=== PATIENT | female | born 1970 | race Caucasian/White ===

== ENCOUNTER 2020-03-03 17:40 | Emergency (ER) | payer OTHER, SELFPAY ==
[2020-03-03 17:57] VITALS: BP 128/81; PULSE 98; RESP 20; TEMP 37.9; O2SAT 98
--- NOTE | 2020-03-03 18:08 | ED.GENADULT ---
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 No treatment. Intermittent dry coughing without chest congestion. Rhinorrhea and nasal congestion. No exacerbating factors. No nausea, vomiting, and abdominal pain. Tolerating po intake well. Denies chest pain, dyspnea, coughing up blood, difficulty swallowing, jaw pain, dental pain, facial pain, foreign body sensation, and rash. LMP menopausal. Remains active. The patient reports she have not been diagnosed with COVID-19. The patient reports she is not waiting for the results of a COVID-19 lab test. The patient reports she do not have fever, chills, or weakness. The patient reports she do not have a worsening cough or shortness of breath. The patient reports she do not have any loss of taste and diarrhea. Denies recent traveling. Christiana says she is concerned for COVID-19 and exposures due to several possible exposures in classroom. At this time, patient is suspected of having COVID-19. Some parts of this dictation were generated by voice recognition software and may contain typographical and/or grammatical inaccuracies. Related Data Home Medications Medication Instructions Recorded Confirmed soy isofla 56 mg-black cohosh 40 tablet PO 06/14/19 03/01/20 mg-green tea,yerba mate 130 mg tablet phentermine 37.5 mg tablet 37.5 mg PO DAILY 03/01/20 03/03/20 estradiol-norethindrone acet 1 tablet PO DAILY 03/03/20 03/03/20 Allergies Allergy/AdvReac Type Severity Reaction Status Date / Time No Known Allergies Allergy Verified 03/03/20 18:02 Review of Systems Review of Systems: Narrative: CONSTITUTIONAL: Denies fever, chills, sweats. Complains of fatigue. EYES: Denies visual changes, redness, discharge. ENT: Complains of rhinorrhea, congestion, sore throat. Denies otalgia. CARDIOVASCULAR: Denies chest pain, palpitations, edema. RESPIRATORY: Denies dyspnea, wheezing. Complains of intermittent dry cough. GASTROINTESTINAL: Denies abdominal pain, nausea, vomiting, diarrhea. Complains of decrease appetite. GENITOURINARY: Denies dysuria, hematuria, abnormal discharge SKIN: Denies rash or itching. MUSCULOSKELETAL: Denies acute back pain, joint pain, or myalgia. NEUROLOGIC: Denies numbness or focal weakness. PSYCHIATRIC: Denies anxiety or depression. All systems reviewed & are unremarkable except as noted in HPI and below. [facility] Past Medical History Medical History (Updated 03/04/20 @ 00:00 by Danielle Garcia) delivery delivered Condyloma Cyst Fatty (change of) liver, not elsewhere classified CHLOÉ (generalized anxiety disorder) Hypertension Menopause Mitral valve prolapse Multinodular goiter Phobia, unspecified Surgical History Surgical History (Updated 03/03/20 @ 18:13 by SHABBIR Meadows) H/O section X2 H/O LEEP 2000 and 2005 History of dilation and curettage History of removal of cyst from back Family History Family History Father Hypertension Mother Hypertension Other Asthma Family history of arthritis Family history of hearing loss Family history of obesity Family history of thyroid disease Social History Social History (Updated 03/03/20 @ 18:14 by SHABBIR Meadows) Smoking status: Former smoker Tobacco type: cigarettes Second hand tobacco smoke exposure: No Smoking end date: 04/28/12 Alcohol intake: current Substance use: never Gender identity (if verbalized by the patient): Female Comments At time of signature, belén
== END 2020-03-03 18:35 | disposition home or self-care (01) ==
PROVIDERS: Emergency Provider Nurse Practitioner Family; PCP Family Medicine
DX: J06.9 Acute upper respiratory infection, unspecified (principal); U07.1 COVID-19; Z87.891 Personal history of nicotine dependence; K76.0 Fatty (change of) liver, not elsewhere classified; I10 Essential (primary) hypertension; I34.1 Nonrheumatic mitral (valve) prolapse; E04.2 Nontoxic multinodular goiter
CPT/HCPCS: 87081; 87804; 87880; 99213; G0463

== ENCOUNTER 2020-03-04 08:09 | Outpatient (NON) | payer OTHER, SELFPAY ==
[2020-03-05 02:43] LABS: SARS-CoV-2 RNA PCR Positive
== END 2020-03-04 08:10 ==
PROVIDERS: PCP Family Medicine; Visit Provider Nurse Practitioner Family
DX: U07.1 COVID-19 (principal)
CPT/HCPCS: 87635; C9803; U0003

== ENCOUNTER 2020-05-16 17:12 | Outpatient (CLI) | payer OTHER, SELFPAY ==
--- NOTE | ~2020-05-16 | MM_ITS ---
EXAMINATION: MM screening jyoti BI w liv HISTORY: Screening mammogram TECHNIQUE: Craniocaudal and mediolateral oblique 3-D tomosynthesis images were obtained and synthetic 2-D images were generated. CAD analysis was submitted and interpreted. COMPARISON: 01/28/2019 bilateral digital screening mammogram 09/28/2015 right digital screening and left diagnostic mammogram. BREAST PARENCHYMAL COMPOSITION: FINDINGS: There is no evidence of suspicious mass, calcification, or architectural distortion to sugg est malignancy in either breast. There has been no suspicious interval change. IMPRESSION: 1. No mammographic evidence of malignancy. 2. Recommend routine screening mammography in one year. BI-RADS Category 1: Negative Reviewed, dictated and finalized at location A. SITE SOIL EVALUATOR
== END 2020-05-16 17:13 | disposition home or self-care (01) ==
PROVIDERS: PCP Family Medicine; Visit Provider Nurse Practitioner
DX: Z12.31 Encounter for screening mammogram for malignant neoplasm of breast (principal)
CPT/HCPCS: 77063; 77067

== ENCOUNTER → 2021-03-16 16:10 | Outpatient (CLI) | payer OTHER, SELFPAY ==
--- NOTE | ~2021-03-16 | US_ITS ---
EXAMINATION: US thyroid DATE: 03/16/2021 16:28 INDICATION: Nontoxic nodular goiter TECHNIQUE: Multiple ultrasound images of the thyroid were obtained. COMPARISON: None. FINDINGS: The right thyroid lobe measures 4.8 x 2.1 x 1.8 cm. The left thyroid lobe measures 4.2 x 1.3 x 1.3 c m. Isoechoic wider than tall solid left thyroid nodule with smooth margins and without echogenic foc i (TI-RADS 3, mildly suspicious , FNA if >=2.5 cm, annual followup is >=1.5 cm) in the right thyroid lobe the larger measuring 2.2 cm and a smaller measuring 9 mm. 4 mm wider than tall hypoechoic solid nodules in the left thyroid (TI-RADS 4, moderately suspicious , FNA if >=1.5 cm, annual followup is > =1 cm). There is normal echotexture, echogenicity and vascular flow throughout the remainder of the t hyroid gland. IMPRESSION: 1. Stable appearance of a multinodular goiter. The largest TI RADS 3 nodule in the right thyroid lobe remains slightly below size criteria for biopsy but meets criteria for continued annual follow-up. Reviewed, dictated and finalized at location A. LE NEEDLE OPERATOR IMPRESSION: 1. Stable appearance of a multinodular goiter. The largest TI RADS 3 nodule in the right thyroid lobe remains slightly below size criteria for biopsy but meet s criteria for continued annual follow-up.
== END ==
PROVIDERS: PCP Family Medicine; Visit Provider Internal Medicine Endocrinology, Diabetes & Metabolism
DX: E04.2 Nontoxic multinodular goiter (principal)
CPT/HCPCS: 76536

== ENCOUNTER 2021-11-19 09:30 | Outpatient (CLI) | payer OTHER, SELFPAY ==
--- NOTE | ~2021-11-19 | MM_ITS ---
EXAMINATION: MM screening jyoti BI w liv HISTORY: Screening mammogram TECHNIQUE: Craniocaudal and mediolateral oblique 3-D tomosynthesis images were obtained and synthetic 2-D images were generated. CAD analysis was submitted and interpreted. COMPARISON: 05/16/2020, 01/28/2019 bilateral screening mammogram examinations of BREAST PARENCHYMAL COMPOSITION: There are scattered areas of fibroglandular density. FINDINGS: There is no evidence of suspicious mass, calcification, or architectural distortion to sugg est malignancy in either breast. There has been no suspicious interval change. IMPRESSION: 1. No mammographic evidence of malignancy. 2. Recommend routine screening mammography in one year. BI-RADS Category 1: Negative Reviewed, dictated and finalized at location A.
== END 2021-11-19 09:31 | disposition home or self-care (01) ==
LOC: ANHIMG 09:32
PROVIDERS: PCP Family Medicine; Visit Provider Nurse Practitioner
DX: Z12.31 Encounter for screening mammogram for malignant neoplasm of breast (principal)
CPT/HCPCS: 77063; 77067

== ENCOUNTER 2023-01-06 14:49 | Outpatient (CLI) | payer OTHER, SELFPAY ==
--- NOTE | ~2023-01-06 | MM_ITS ---
EXAMINATION: MM screening jyoti BI w liv HISTORY: Screening mammogram TECHNIQUE: Craniocaudal and mediolateral oblique 3-D tomosynthesis images were obtained and synthetic 2-D images were generated. CAD analysis was submitted and interpreted. COMPARISON: 11/19/2021, 05/16/2020, 01/28/2019 bilateral screening mammogram examinations BREAST PARENCHYMAL COMPOSITION: There are scattered areas of fibroglandular density. FINDINGS: There is no evidence of suspicious mass, calcification, or architectural distortion to sugg est malignancy in either breast. There has been no suspicious interval change. IMPRESSION: 1. No mammographic evidence of malignancy. 2. Recommend routine screening mammography in one year. BI-RADS Category 1: Negative Reviewed, dictated and finalized at location A.
--- NOTE | ~2023-01-06 | DEXA_ITS ---
Bone Density Report Name: GABRIELA PANG Age: 52 Sex: Female Ethnicity: White Date of : 1970 Indication: postmenopausal; screening for osteoporosis; parental hip fracture; hysterectomy; Referring Provider: CHAYITO, MARIA DE JESUS Study: Bone densitometry was performed. Exam Date: January 06, 2023 Accession number: [id number] Bone Density: Region BMD T-score Z-score Classification AP Spine(L1-L4) 1.099 0.5 1.2 Normal Femoral Neck (Left) 0.897 0.4 1.2 Normal Total Hip (Left) 1.089 1.2 1.7 Normal Femoral Neck (Right) 0.865 0.1 0.9 Normal Total Hip (Right) 1.116 1.4 1.9 Normal Total Hip Mean 1.103 1.3 1.8 Normal World Health Organization criteria for BMD impression classify patients as: Normal (T-score at or above -1.0), Osteopenia (T-score between -1.0 and -2.5), or Osteoporosis (T-score at or below -2.5). 10-year Fracture Risk: FRAX not reported because: All T-scores for Spine Total, Hip Total, Femoral Neck at or above -1.0 Clinical Information Provided by Patient: Parent has had a hip fracture Has the following medical conditions: Hysterectomy Patient maximum height was 64 Menopause Age: 47 Drinks caffeinated beverages Onset of menses at age 13 Number of children 2 Impression: The patient has normal bone mass. The patient has risk factors, including: parental hip fracture. Discussion: BONE DENSITY IS ABOVE THE MINIMUM DESIRABLE LEVEL AT ALL SKELETAL SITES TESTED. This patient?s bone mineral density is above the minimum desirable level (T-score -1.0 or better) at all sites measured. The patient should follow a healthful lifestyle (good nutrition with adequate calcium and vitamin D, and appropriate weight-bearing exercise). Follow-Up: Consider repeating this study in 5 years or sooner if there is some new clinical indication. Reported by: MANOLO on 01/06/2023 3:22:00 PM. Reviewed, dictated and finalized at location AJose R WAN
== END 2023-01-06 14:50 | disposition home or self-care (01) ==
PROVIDERS: PCP Nurse Practitioner; Visit Provider Nurse Practitioner
DX: Z12.31 Encounter for screening mammogram for malignant neoplasm of breast (principal); Z78.0 Asymptomatic menopausal state
CPT/HCPCS: 77063; 77067; 77080

== ENCOUNTER 2023-01-07 01:42 | Observation (INO) | payer OTHER, SELFPAY ==
[2023-01-07] VITALS (26 sets, daily range): BP systolic 88–124; BP diastolic 40–81; PULSE 68–164; RESP 13–20; TEMP 35.6–36.7; O2SAT 97–100; BMI 33.1
--- NOTE | 2023-01-07 | ECHO_ITS ---
Patient Info Name: Christiana Cheema Age: 52 years : 1970 Gender: Female Ht: 65 in Wt: 194 lbs BSA: 2.04 m2 HR: 80 bpm BP: 110 / 89 mmHg Heart Rhythm: Sinus Rhythm Technical Quality: Good Exam Date: 01/07/2023 10:40 AM Exam Location: [facility] Pulmonary Patient Status: Outpatient Admit Date: 01/07/2023 Staff Ordering Physician: Sampson Lua DO Special Education Para Professional: Alexa Jimenez RDCS Attending Provider: Armani Martinez MD Referring Physician: Stoney MONTE; Exam Type: CA echo doppler color flow Study Info Indications - svt, elevated troponin Complete two-dimensional, color flow and Doppler transthoracic echocardiogram is performed. Summary 1. Complete two-dimensional, color flow and Doppler transthoracic echocardiogram is performed. 2. Left ventricular chamber dimension is normal. 3. Left ventricular systolic function is normal, estimated at 60-65%. 4. There is mild asymmetric septal increased left ventricular wall thickness. 5. The left ventricular diastolic function is grade I diastolic dysfunction. 6. There is trace mitral valve regurgitation. 7. There is trace tricuspid valve regurgitation. 8. No pulmonary hypertension, estimated pulmonary arterial systolic pressure is 10 mmHg. Left Ventricle Tissue doppler E/e' is not performed. Left ventricular chamber dimension is normal. Left ventricular systolic function is normal, estimated at 60-65%. There is mild asymmetric septal increased left ventricular wall thickness. The left ventricular diastolic function is grade I diastolic dysfunction. Right Ventricle Right ventricular systolic function is normal and with normal TAPSE 2.4 cm. Right ventricular chamber dimension is normal. Left Atria Left atrial chamber dimension is normal. Right Atria Right atrial chamber dimension is normal. Aortic Valve The aortic valve is trileaflet. There is no aortic valve stenosis. There is no aortic valve regurgitation. Pulmonic Valve There is no pulmonic regurgitation. Mitral Valve There is no mitral valve stenosis. There is trace mitral valve regurgitation. Tricuspid Valve There is trace tricuspid valve regurgitation. No pulmonary hypertension, estimated pulmonary arterial systolic pressure is 10 mmHg. Pericardium/Pleural There is no pericardial effusion. Inferior Vena Cava Normal inferior vena cava with >50% collapse upon inspiration consistent with normal right atrial pressure, 5 mmHg. Aorta The aortic root size at the sinus of Valsalva is normal. Left Ventricular Outflow Tract Name Value Normal LVOT 2D LVOT Diameter 1.7 cm LVOT Doppler LVOT Peak Gradient 10 mmHg LVOT Mean Gradient 6 mmHg LVOT VTI 32 cm LVOT VTI/AV VTI Ratio 1.2 LVOT Stroke Volume 72 ml LVOT CO 4.9 l/min LVOT CI 2.4 l/min/m2 Pulmonic Valve Name Value Normal RVOT Doppler ------
--- NOTE | ~2023-01-07 | XR_ITS ---
Clinical Indication: Chest pain PA and lateral views of the chest: Comparison: None Findings: The lungs are clear, without evidence of focal consolidation or pleural effusion. Cardiome diastinal silhouette is within normal limits. Bones and soft tissues are unremarkable. Impression: Normal chest. Reviewed, dictated and finalized at location . Impression: Normal chest.
--- NOTE | 2023-01-07 01:44 | ECG_ITS ---
Measurements Intervals [place] Rate: 184 P: [place]: 0 QRS: -5 QRSD: 95 T: 33 QT: 248 QTc: 434 Interpretive Statements SUPRAVENTRICULAR TACHYCARDIA ST ABNORMALITY IN HIGH LATERAL LEADS- CONSIDER ISCHEMIA OR RATE RELATED BASELINE WANDER- AVR, AVF, V1 ABNORMAL ECG NO PREVIOUS ECG AVAILABLE FOR COMPARISON Electronically Signed On 01-07-2023 6:48:00 CDT by Sampson Lua D.O.
--- NOTE | 2023-01-07 02:04 | ECG_ITS ---
Measurements Intervals [place] Rate: 90 P: 30 OH: 176 QRS: 8 QRSD: 93 T: 28 QT: 346 QTc: 425 Interpretive Statements SINUS RHYTHM BORDERLINE ST ABNORMALITY- ANTEROLATERAL LEADS BASELINE ARTIFACT- III, V1 BORDERLINE ECG COMPARED TO ECG 01/07/2023 01:52:03 SINUS RHYTHM NOW PRESENT Electronically Signed On 01-07-2023 12:01:49 CDT by Sampson Lua D.O.
[2023-01-07] MEDS: ASPIRIN 81 MG CHEWABLE TABLET 324 MG PO (02:41)
--- NOTE | 2023-01-07 02:54 | ED.CHESTPAIN ---
HPI - Chest Pain General Chief Complaint: Chest Pain Stated Complaint: chest pain Time Seen by Provider: 01/07/23 02:14 History of Present Illness HPI narrative: Patient presents the emergency department with her from home. States she woke up feeling very anxious with palpitations and chest discomfort. [place] lightheaded. He brought her to the emergency department she was noted to be in SVT with a rate of 184. When nurse laid her back she cardioverted and became hypotensive. With time her blood pressure resolved on its own. She is feeling much better. Denies having similar episodes of this in the past. States she has been under in a lot of stress lately, she is concerned about her parents. She is accompanied by her but he does not contribute to the history. Related Data Home Medications Medication Instructions Recorded Confirmed soy isofla 56 mg-black cohosh 40 tablet PO 06/14/19 10/03/22 mg-green tea,yerba mate 130 mg tablet ([employer]) estradiol-norethindrone acet 0.5 1 tablet PO DAILY 03/03/20 10/03/22 mg-0.1 mg tablet Allergies Allergy/AdvReac Type Severity Reaction Status Date / Time No Known Allergies Allergy Verified 10/03/22 09:02 Review of Systems Review of Systems: CONSTITUTIONAL: Denies fever, chills, or sweats. EYES: Denies visual changes, redness, or discharge. ENT: Denies rhinorrhea, congestion, sore throat, or otalgia. CARDIOVASCULAR: Denies edema. Positive for chest discomfort and palpitations RESPIRATORY: Denies cough or dyspnea. GASTROINTESTINAL: Denies abdominal pain, nausea, vomiting, or diarrhea. GENITOURINARY: Denies dysuria or hematuria. SKIN: Denies rash or itching. MUSCULOSKELETAL: Denies back pain, joint pain, or myalgia. NEUROLOGIC: Denies headache, numbness, or weakness. PSYCHIATRIC: Denies anxiety or depression. [facility] Past Medical History Medical History delivery delivered Condyloma Cyst Fatty (change of) liver, not elsewhere classified CHLOÉ (generalized anxiety disorder) Hypertension Menopause Mitral valve prolapse Multinodular goiter Phobia, unspecified Surgical History Surgical History H/O section X2 H/O LEEP 2000 and 2005 History of dilation and curettage History of removal of cyst from back Family History Family History (Updated 10/03/22 @ 09:15 by Lorene Brito PA-C) Father Hypertension CHF (congestive heart failure) Mother Hypertension Other Asthma Cerebrovascular accident Diabetes mellitus Family history of arthritis Family history of hearing loss Family history of obesity Family history of thyroid disease Thyroid disease Social History Social History Smoking status: Former smoker Tobacco type: cigarettes Second hand tobacco smoke exposure: No Smoking end date: 04/28/12 Alcohol intake: current Substance use: never Living arrangements: with family Occupation/Education: occupation Gender identity (if verbalized by the patient): Female Sexual Orientation (if Verbalized by the Patient): Straight or Heterosexual Exam Narrative: GENERAL: Well-appearing, well-nourished, and in no acute distress. HEAD: Normocephalic, atraumatic. EYES: PERRLA and EOMI. ENT: Nares clear, no rhinorrhea or epistaxis. Mucous membranes moist. NECK: Supple. CHEST: Clear to auscultation. No respiratory distress. HEART: Regular rate and rhythm. ABDOMEN: Soft, nontender, nondistended. EXTREMITIES: Normal range of motion. No edema. SKIN: Warm, dry, no rash. NEURO: No focal deficits. Alert and oriented x3. PSYCH: Normal mood and affect. Course Course Emergency Course: Upon my exam the patient was no longer in SVT. Although initially hypotensive. Differential diagnosis includes but not limited to electroly
[2023-01-07 03:02] LABS: Basophils Absolute Auto 0.1 K/mm3 (0.0-0.1); Eosinophils Absolute Auto 0.2 K/mm3 (0-0.3); Eosinophils Percent Auto 3.2 % (0-4.4); Hematocrit 43.6 % (37.0-47.0); Hemoglobin 14.6 g/dL (12.0-15.0); Immature Granulocyte Absolute 0.01 K/mm3 (0.00-0.031); Immature Granulocyte Percent A 0.2 % (0-0.5); Lymphocytes Absolute Auto 1.63 K/mm3 (0.9-3.2); Lymphocytes Percent Auto 27.3 % (18.3-44.2); Mean Corpuscular HGB Conc 33.5 g/dl (32-36); Mean Corpuscular Hemoglobin 32.9 pg (26-34); Mean Corpuscular Volume 98.2 fl (80-100); Mean Platelet Volume 8.9 fl (7.4-10.4); Monocytes Absolute Auto 0.6 K/mm3 (0.1-0.6); Neutrophils Absolute Auto 3.5 K/mm3 (1.3-6.7); Neutrophils Percent Auto 58.3 % (45.5-73.1); Platelet Count Result 263 k/mm3 (150-375); Red Blood Count 4.44 M/mm3 (4.2-5.4); Red Cell Distribution Width 12.1 % (11.5-14.5)
[2023-01-07 03:12] LABS: Prothrombin Time 13.7 Seconds (11.1-14.7)
[2023-01-07 03:13] LABS: Partial Thromboplastin Time 29.7 SECONDS (22.3-36.8)
[2023-01-07 03:16] LABS: Alanine Aminotransferase 41 U/L (6-35); Albumin Level 3.7 g/dL (3.5-5.1); Alkaline Phosphatase 64 U/L (38-126); Anion Gap 10 mmol/L (8-16); Aspartate Amino Transferase 37 U/L (14-36); Bilirubin,Total 0.3 mg/dL (0.2-1.3); Blood Urea Nitrogen 18 mg/dL (7-17); Calcium 8.5 mg/dL (8.4-10.2); Carbon Dioxide 23 mmol/L (22-30); Chloride 106 mmol/L (98-107); Estimated CRCL calculation 70 ml/min; Estimated Glomerular Filt Rate > 60; Glucose 97 mg/dL (65-110); Lipase 109 U/L (23-300); Potassium 3.7 mmol/L (3.4-5.0); Sodium 139 mmol/L (137-145)
[2023-01-07 03:23] LABS: Magnesium 2.2 mg/dL (1.6-2.3); Phosphorus 3.6 mg/dL (2.5-4.5)
[2023-01-07 03:27] LABS: Troponin I < 0.012 ng/mL (0.000-0.034)
[2023-01-07 05:35] LABS: Troponin I 0.173 ng/mL (0.000-0.034)
--- NOTE | 2023-01-07 07:53 | PM.CNCAR ---
Assessment and Plan Assessment and plan (1) Nonsustained supraventricular tachycardia: Code(s): I47.1 - Supraventricular tachycardia Status: Acute Assessment and Plan: Spontaneously cardioverted to sinus rhythm. Start Metoprolol Succinate 25 mg daily. If BP is low, then would stop Lisinopril. (2) Elevated troponin: Code(s): R77.8 - Other specified abnormalities of plasma proteins Status: Acute Assessment and Plan: Troponin elevated at .173. Could be demand ischemia from rapid HR. Trend troponin to peak. Obtain echo. (3) Hypertension: Code(s): I10 - Essential (primary) hypertension Status: Acute Assessment and Plan: Monitor. History of Present Illness History of Present Illness Consult date/time: 01/07/23 07:53 Reason For Visit: chest pain Narrative: 52 yr old woman presented to ER with chest pain and palpitations. She has a history of brief palpitations in the past, hypertension, MVP, goiter. Reports she got up last night at 1 am to use restroom then noticed fast pounding heart rate and chest pain and sob with it. She informed her who drove her in to ER. When nurse laid her back in bed she converted back to sinus rhythm, and felt better. Admits to a lot of stress from her parent's illness. She normally can walk miles without any problems. Denies orthopnea, PND, edema, dizziness. Review of Systems Review of Systems: All systems reviewed & are unremarkable except as noted in HPI and below Constitutional: Constitutional: Reports as per HPI, Denies chills and Denies fever(s) Cardiovascular: Cardiovascular: Reports as per HPI, Reports chest pain and Reports palpitations Respiratory: Respiratory: Reports as per HPI and Reports dyspnea Gastrointestinal: Gastrointestinal: Reports as per HPI and Denies abdominal pain Genitourinary: Genitourinary: Reports as per HPI and Denies dysuria Musculoskeletal: Musculoskeletal: Reports as per HPI Neurologic: Reports as per HPI, Denies dizziness and Denies syncope [facility] Past Medical History Medical History delivery delivered Condyloma Cyst Fatty (change of) liver, not elsewhere classified CHLOÉ (generalized anxiety disorder) Hypertension Menopause Mitral valve prolapse Multinodular goiter Phobia, unspecified Surgical History Surgical History H/O section X2 H/O LEEP 2000 and 2005 History of dilation and curettage History of removal of cyst from back Family History Family History (Updated 10/03/22 @ 09:15 by Lorene Brito PA-C) Father Hypertension CHF (congestive heart failure) Mother Hypertension Other Asthma Cerebrovascular accident Diabetes mellitus Family history of arthritis Family history of hearing loss Family history of obesity Family history of thyroid disease Thyroid disease Social History Social History Smoking status: Former smoker Tobacco type: cigarettes Second hand tobacco smoke exposure: No Smoking end date: 04/28/12 Alcohol intake: current Substance use: never Living arrangements: with family Occupation/Education: occupation Gender identity (if verbalized by the patient): Female Sexual Orientation (if Verbalized by the Patient): Straight or Heterosexual Meds Home Medications and Allergies Home Medications Medication Instructions Recorded Confirmed Type soy isofla 56 mg-black cohosh 40 tablet PO 06/14/19 10/03/22 History mg-green tea,yerba mate 130 mg tablet ([employer]) estradiol-norethindrone acet 0.5 1 tablet PO DAILY 03/03/20 10/03/22 History mg-0.1 mg tablet fluticasone propionate 50 1 spray intranasal BID #16 mL 03/03/20 10/03/22 Rx mcg/actuation nasal spray,suspension (Allergy Relief (fluticasone)) betamet
[2023-01-07] MEDS: METOPROLOL SUCCINATE EXT REL 25 MG TABCR PO (08:23)
--- NOTE | 2023-01-07 08:27 | ADMGEN ---
This patient, Christiana Cheema, was admitted to IMU Room 210-01. Patient/family oriented to hospital policies and general routines including ID bracelet, bed and alarms, visiting hours, pain management, procedures, bathroom and other care routines, personal items, smoking policy, room service/diet, and visiting hours. Information on how to activate the Rapid Response Team has been discussed. Patient/Family are encouraged to report perceived risks to care and to ask questions if they do not understand what they are told or what they should do.
[2023-01-07 09:21] LABS: Troponin I 0.303 ng/mL (0.000-0.034)
[2023-01-07 13:12] LABS: Troponin I 0.229 ng/mL (0.000-0.034)
--- NOTE | 2023-01-07 18:36 | PM.IMHP ---
H&P: HPI History of Present Illness Date/Time: 01/07/23 18:36 Chief Complaint: Palpitations Narrative: 52 y/o F presents here with palpitations and chest tightness with PMH of HTN, mitral valve prolapse, and multi-nodular goiter. patient presented to the ED late last night around 0130 with palpitations and chest discomfort that started 30 minutes prior to arrival and awoke patient from her sleep. She endorsed mild shortness breath, chest tightness, and clammy sensation during event. No interventions at home attempted. At arrival to ED patient was laid back and spontaneous resolution of SVT occurred. No current complaints of palpitations, no previous episodes similar to last night, and no recent illnesses. Review of Systems Review of Systems: All systems reviewed & are unremarkable except as noted in HPI and below PMFSH Past Medical History Medical History delivery delivered Condyloma Cyst Fatty (change of) liver, not elsewhere classified CHLOÉ (generalized anxiety disorder) Hypertension Menopause Mitral valve prolapse Multinodular goiter Phobia, unspecified Surgical History Surgical History H/O section X2 H/O LEEP 2000 and 2005 History of dilation and curettage History of removal of cyst from back Family History Family History (Updated 10/03/22 @ 09:15 by Lorene Brito PA-C) Father Hypertension CHF (congestive heart failure) Mother Hypertension Other Asthma Cerebrovascular accident Diabetes mellitus Family history of arthritis Family history of hearing loss Family history of obesity Family history of thyroid disease Thyroid disease Social History Social History Smoking status: Former smoker Second hand tobacco smoke exposure: No Alcohol intake: current Drinks per week: 10 Substance use: never Lack of Transportation: No Lack of Food: Never True Current Housing: I Have Housing Concerned About Future Housing: No Difficulty Paying Gas/Electric Bills: No Difficulty Paying for Meds: No Currently Unemployed: No Education: Master's Degree or Higher Difficulty w/ Childcare or Family Care: YES Living arrangements: with family Occupation/Education: occupation Gender identity (if verbalized by the patient): Female Sexual Orientation (if Verbalized by the Patient): Straight or Heterosexual Spiritual care concerns: No Meds Home Medications and Allergies Home Medications Medication Instructions Recorded Confirmed Type estradiol-norethindrone acet 0.5 1 tablet PO DAILY 03/03/20 01/07/23 History mg-0.1 mg tablet lisinopril 30 mg tablet See Rx Instructions .Route 10/17/22 01/07/23 Rx .COMPLEX #30 tabs liraglutide (weight loss) 3 mg/0.5 3 mg subcut DAILY 01/07/23 01/07/23 History mL (18 mg/3 mL) subcut pen injector (Saxenda) vxmcryvh-vsr-teecp ac 400 1 tablet PO DAILY 01/07/23 01/07/23 History mcg-calcium carb 500 mg-vit K1 20 mcg tablet (Women's 50 Plus Multivitamin) phentermine 37.5 mg tablet 37.5 mg PO DAILY 01/07/23 01/07/23 History Allergies Allergy/AdvReac Type Severity Reaction Status Date / Time No Known Allergies Allergy Verified 10/03/22 09:02 Vital Signs Vital Signs - 24 hr 01/07/23 01:53 01/07/23 02:03 01/07/23 02:03 Temperature 97.6 F Pulse Rate 164 H 91 91 Respiratory Rate 15 15 Blood Pressure 88/40 L 124/69 Pulse Oximetry 97 98 Oxygen Delivery Room Air 01/07/23 03:00 01/07/23 04:00 01/07/23 05:00 Temperature Pulse Rate 97 97 84 Respiratory Rate 14 14 19 Blood Pressure 97/60 L 116/77 116/77 Pulse Oximetry 100 100 100 Oxygen Delivery 01/07/23 06:00 01/07/23 06:30 01/07/23 07:43 Temperature Pulse Rate 79 71 77 Respiratory Rate 19 18 13 Blood Pressure 106/68 98/66 L Pul
[2023-01-07 20:10] LABS: NT Pro B Type Natriuretic Pept 146 pg/mL (19.9-100)
[2023-01-08] VITALS (9 sets, daily range): BP systolic 123–139; BP diastolic 80–96; PULSE 67–81; RESP 16–18; TEMP 36.1–36.3; O2SAT 97–100
--- NOTE | 2023-01-08 07:43 | PM.PNCARD ---
Progress Note: A&P Assessment and Plan (1) Nonsustained supraventricular tachycardia: Code(s): I47.1 - Supraventricular tachycardia Status: Acute Assessment and Plan: Spontaneously cardioverted to sinus rhythm. 01/07/23 Echo: EF 60-65%, mild asymmetric LV septal hypertrophy, trace MR/TR. Started Metoprolol Succinate 25 mg daily. Instructed on vagal maneuvers to abort SVT if she is to have recurrence of SVT, and if unsuccessful then to go to ER after 15-20 minutes. Cautioned regarding using weight loss medication as it may cause palpitations/tachycardia especially phentermine. May d/c home from cardiology standpoint and f/u with me in 2-3 weeks. (2) Elevated troponin: Code(s): R77.8 - Other specified abnormalities of plasma proteins Status: Acute Assessment and Plan: Troponin peaked at .30. Could be demand ischemia from rapid HR. (3) Hypertension: Code(s): I10 - Essential (primary) hypertension Status: Acute Assessment and Plan: Stable on Metoprolol. Stopped Lisinopril. Subjective Date/time seen: 01/08/23 07:43 Interval history: Denies chest pain or sob. Exam Const: General: cooperative, healthy appearing and comfortable Orientation/consciousness: oriented to person, oriented to place and oriented to time Resp: Auscultation: clear to auscultation bilaterally, no crackles, no rales, no rhonchi and no wheezes Cardio: Rate: regular rate Rhythm: regular rhythm Heart sounds: Murmur heart sound present (I/ systolic murmur apex) Peripheral pulses: dorsalis pedis present Neuro: General: oriented to person, oriented to place and oriented to time Extrem: Right lower extremity: no edema Left lower extremity: no edema Objective Data Vital Signs Vital Signs: Vital Signs - 24 hr 01/07/23 07:45 01/07/23 08:00 01/07/23 08:01 Temperature 98.0 F Pulse Rate 79 75 70 Respiratory Rate 17 13 16 Blood Pressure 109/81 Pulse Oximetry 100 100 98 Oxygen Delivery 01/07/23 08:15 01/07/23 08:23 01/07/23 08:25 Temperature Pulse Rate 78 80 Respiratory Rate 13 Blood Pressure 110/80 Pulse Oximetry 97 Oxygen Delivery 01/07/23 09:21 01/07/23 12:33 01/07/23 16:15 Temperature 96.1 F L 96.2 F L 96.8 F L Pulse Rate 77 73 81 Respiratory Rate 18 18 16 Blood Pressure 116/59 L 112/67 110/48 L Pulse Oximetry 98 97 98 Oxygen Delivery 01/07/23 10:00 01/07/23 12:00 01/07/23 14:00 Temperature Pulse Rate 95 73 68 Respiratory Rate Blood Pressure Pulse Oximetry Oxygen Delivery 01/07/23 16:00 01/07/23 12:00 01/07/23 16:00 Temperature Pulse Rate 74 Respiratory Rate Blood Pressure Pulse Oximetry Oxygen Delivery Room Air Room Air 01/07/23 08:40 01/07/23 08:30 01/07/23 18:00 Temperature Pulse Rate 81 81 Respiratory Rate Blood Pressure Pulse Oximetry Oxygen Delivery Room Air 01/07/23 20:00 01/07/23 20:00 01/07/23 20:00 Temperature 97.5 F L Pulse Rate 78 76 Respiratory Rate 20 Blood Pressure 106/70 Pulse Oximetry 99 99 Oxygen Delivery Room Air 01/07/23 22:00 01/07/23 23:02 01/08/23 00:00 Temperature 97.6 F Pulse Rate 76 76 Respiratory Rate 18 Blood Pressure 118/78 Pulse Oximetry 99 99 Oxygen Delivery Room Air 01/08/23 00:00 01/08/23 02:00 01/08/23 04:00 Temperature 97.3 F L Pulse Rate 75 67 74 Respiratory Rate 18 Blood Pressure 136/80 Pulse Oximetry 100 Oxygen Delivery 01/08/23 04:00 01/08/23 04:00 01/08/23 06:00 Temperature Pulse Rate 76 68 Respiratory Rate Blood Pressure Pulse Oximetry 98 Oxygen Delivery Room Air Intake/Output Intake/Output: Intake & Output 01/05/23 01/06/23 01/07/23 01/08/23 23:59 23:59 23:59 23:59 Intake Total 1280 600 Output Total 700 400 Balance 580 200 Meds/Results Medications: Active Medications Generic Name Dose Route Start Last Admin Trade Name Freq SONIDO R
[2023-01-08] MEDS: METOPROLOL SUCCINATE EXT REL 25 MG TABCR PO (10:03)
[2023-01-08] MEDS: ASPIRIN 81 MG ENTERIC TABLET PO (10:04)
[2023-01-08] MEDS: ENOXAPARIN 40 MG/0.4 ML SYRINGE SUB-Q (10:04)
[2023-01-08] MEDS: THERAPEUTIC MULTIVITAMINS/MINERALS TAB (*BKC) 1 TABLET PO (10:05)
--- NOTE | 2023-01-08 11:25 | PM.DS ---
DS: Admitting Diagnosis Discharge Date 01/08/23 Admitting Diagnosis Palpitation DS: Discharge Diagnosis Discharge Diagnosis (1) Nonsustained supraventricular tachycardia: Code(s): I47.1 - Supraventricular tachycardia Status: Acute (2) Hypertension: Code(s): I10 - Essential (primary) hypertension Status: Acute (3) Elevated troponin: Code(s): R77.8 - Other specified abnormalities of plasma proteins Status: Acute DS: Summary Hospital Course Reason for hospitalization: 52yo female with hypertension presents with palpitations. Please see H&P for details. Hospital Course: Patient awoke with palpitations and chest discomfort. She presented to the emergency room for evaluation and found to have SVT with a rate of 184. EKG confirmed this finding and also showed ST abnormalities in the high lateral leads. She was laid back with feet elevated in the ED and she converted to normal sinus rhythm. Repeat EKG showed normal sinus rhythm with borderline ST changes. Chest x-ray was clear. CBC, PT, PTT and BMP were essentially normal. No D-dimer but low clinical probability for PE. LFTs showed AST of 37 and ALT of 41 probably related to mild hepatic congestion. Lipase was normal. TSH was normal. Troponin climbed to 0.3 felt to be related to the markedly elevated heart rate. Her BNP was 146. Echocardiogram showed normal LV systolic function with EF of 60-65% with mild asymmetric septal increased left ventricular wall thickness. She had grade 1 diastolic dysfunction and trace valvular disease. She was started on metoprolol. Cardiology was consulted. She was monitored on telemetry and there was no recurrence. She overall did well and was able to be discharged home on 01/08/23. She was given instructions on how to treat any recurrence. Phentermine was held. Status at Discharge Cognitive/behavioral status at discharge: stable. Time Spent with Patient Time attestation: Total time spent providing and/or coordinating discharge services: 35 minutes Time spent: Greater than 30 minutes Exam Narrative: AF 97.0 139/96 81 16 97% ra Gen - NARD Chest - CTA bilaterally, nml RR CV - RRR S1/S2. Tele showing no recurrence. Abd - Soft, NT/ND, Positive BS Ext - No pedal edema Neuro - Alert and oriented. Nonfocal exam. Psych - Nml mood and affect Skin - Warm and dry DS: Data Data Completed and Pending Labs on day of discharge: Labs from last 24 hours 09/12/23 09/12/23 09/12/23 12:26 08:45 08:43 Troponin I 0.229 H* D NT-Pro-B Natriuret Pep 146 H TSH (Reflex) 1.670 Discharge Plan Discharge Attending physician on discharge: Angel Murdock Consulting providers: Sampson Lua Discharging Clinician: Angel Murdock Anticipated Discharge Date/Time: 01/08/23 11:43 Patient Disposition: Home, Self-Care Activity: as tolerated Diet: regular Discharge Instructions: Contact your doctor or call 911 and come to the Emergency Room if you have recurrent palpitations that you can not stop with bearing down (or other techniques that we have spoken of) or other worrisome symptoms. If unsuccessful to abort the palpitations then to go to ER after 15-20 minutes. Avoid NSAIDs (ibuprofen, naproxen, Aleve). Tylenol is safe to take. Follow-up with your primary care provider in 1-2 weeks. Please call for appointment. Follow-up with Colon Therapist in 2-3 weeks Thank you for using [facility] for your health care needs. Patient Instructions: Antibiotic Form Stand Alone Forms: General Discharge Information Follow-up/Referrals: Danny Carreno MD [Primary Care Provider] - Call for Appointment Sampson Lua DO [Physician] - Call for Appointment Discharge Medications: New metoprolol succinate [Toprol XL] 25 mg Tablet Extended Release 24 Hr 25 mg PO QAM Qty: 30 2RF Continued estradiol-norethindrone acet 0.5-0.1 mg Tablet 1 tablet PO
== END 2023-01-08 12:35 | disposition home or self-care (01) ==
LOC: ANHED 06:22 → ANHIMU 01-08 11:45
PROVIDERS: Internal Medicine Cardiovascular Disease; Student in an Organized Health Care Education/Training Program; Admitting Provider Chiropractor; Emergency Provider Emergency Medicine; PCP Family Medicine; Visit Provider Internal Medicine
DX: I47.1 Supraventricular tachycardia (principal); I34.1 Nonrheumatic mitral (valve) prolapse; R06.00 Dyspnea, unspecified; K76.0 Fatty (change of) liver, not elsewhere classified; F41.1 Generalized anxiety disorder; I10 Essential (primary) hypertension; Z78.0 Asymptomatic menopausal state; F10.90 Alcohol use, unspecified, uncomplicated; Z79.890 Hormone replacement therapy; Z87.891 Personal history of nicotine dependence; Z79.85 Long-term (current) use of injectable non-insulin antidiabetic drugs; Z79.899 Other long term (current) drug therapy; Z82.49 Family history of ischemic heart disease and other diseases of the circulatory system
CPT/HCPCS: 36415; 71046; 80053; 83690; 83735; 83880; 84100; 84443; 84484; 85025; 85610; 85730; 93005; 93306; 96372; 99285; A9270; G0378; J1650

== ENCOUNTER 2023-11-18 11:09 | Outpatient (CLI) | payer OTHER, SELFPAY ==
--- NOTE | ~2023-11-18 | CT_ITS ---
EXAMINATION: CT lung screening DATE: 11/18/2023 11:26 INDICATION: Nicotine dependence TECHNIQUE: Computed tomography (CT) of the chest was performed without intravenous contrast. The dose -length product was 156.67 mGy-cm. Automated exposure control and iterative reconstruction technique were employed. COMPARISON: None FINDINGS: No significant pleural or pericardial effusion. No thoracic lymphadenopathy. There is an ab normal mass along the left lateral aspect of the breasts partially visualized. Recommend correlation with mammography and ultrasound. There is left lower lobe atelectasis/scarring. There are changes of gastric bypass surgery. No endobronchial lesions. There is a 5 mm right middle lobe nodule, image 59. IMPRESSION: 1. Lung-RADS category 2S: Benign appearance or behavior. Continue annual screening with noncontrast l ow-dose chest CT in 12 months. 2: Partially visualized mass left breast laterally. Correlation with diagnostic bilateral mammogram a nd left breast ultrasound recommended. Reviewed, dictated and finalized at location B. IMPRESSION: 1. Lung-RADS category 2S: Benign appearance or behavior. Continue annual screen ing with noncontrast low-dose chest CT in 12 months. 2: Partially visualized mass left breast laterally. Correlation with diagnostic bilateral mammogram and left breast ultrasound recommended.
== END 2023-11-18 11:10 | disposition home or self-care (01) ==
PROVIDERS: PCP Family Medicine; Visit Provider Physician Assistant
DX: Z12.2 Encounter for screening for malignant neoplasm of respiratory organs (principal); F17.210 Nicotine dependence, cigarettes, uncomplicated; N63.20 Unspecified lump in the left breast, unspecified quadrant
CPT/HCPCS: 71271

== ENCOUNTER 2023-12-22 00:40 | Day surgery (SDC) | payer OTHER, SELFPAY ==
--- NOTE | 2023-12-19 17:22 | SUR.PREOP ---
Report to the Outpatient Waiting Room, entrance under the green pavilion located off [facility], at time _0700_ on date _12/22/23_. Planned Procedure Time: _0900__.? Time changes happen often and if your time is changed the preop area will call you the afternoon before. - You and your visitor will be asked to self-screen and do not enter if you have any COVID symptoms. Please call surgeon if you need to reschedule. - A mask is optional within the hospital at this time. Patients may have clear liquids (water, carbonated beverages, clear teas, apple juice) until 3 hours prior to surgery with a maximum of 20 ounces. 0600 - No food from midnight until time of surgery and no smoking - Infants may have breast milk until 4 hours before surgery, formula 6 hours prior to surgery. - Children will be allowed to drink immediately following surgery.? If applicable, please bring a bottle or sippy cup to assist with drinking. Juice, water, soda, and popsicles are readily available.? For infants on formula, please bring formula the day of surgery.? Pacifiers are allowed. Take only the following medications with a SIP of water on the morning of surgery: __N/A__ DO NOT STOP ANY OF YOUR OTHER PRESCRIPTION MEDICATIONS PRIOR TO SURGERY EXCEPT THE FOLLOWING Medications to discontinue per physician __ANTHONY; MULTIVITAMIN___ Date to take last dose__12/19/23 (STOP NOW)__ Please no make-up, nail mexican, hairspray, perfume, deodorant, or body powder the day of surgery.? No jewelry (including any body piercings) or valuables the day of surgery, leave them at home.? Please take a shower or bath the night before, or the morning of, surgery with an antibacterial soap.? Wear comfortable, loose fitting clothing.? Children are encouraged to wear pajamas. - Jewelry must be removed prior to entering the operating room.? Rings and piercings that are not removed may be cut off. - The hospital will not accept responsibility for valuables.? - Please leave all valuables, including medications, at home the day of surgery. If you are going home after surgery, a licensed regional tanker truck driver must drive you home.? - NO public transportation without another adult if you receive anesthesia. - We recommend that an adult stay with you for 24 hours following discharge. - We also recommend that you do not drive, make important decision, drink alcoholic beverages, or take any drugs that were not prescribed by your health care provider for at least 24 hours after your discharge time. For Pediatric surgeries, we recommend two adults accompany the child home. Follow any additional instructions given to you from your surgeon. Telephone instructions given to _ERIN_and asked if any additional questions and then verbalized understanding. Patient advised to call surgeon office or pre surgery nurse liaison [phone] if any additional questions.
[2023-12-19 17:47] VITALS: BMI 36.8
[2023-12-22 07:16] VITALS: BP 135/85; PULSE 70; RESP 18; TEMP 36.6; O2SAT 96
--- NOTE | 2023-12-22 07:24 | WPDHPUPDATE1 ---
History and Physical Update Update Date/Time: 12/22/23 07:24 History and Physical has been reviewed, including an updated exam of the patient. There are NO changes in the patient's condition. Risks, benefits, and alternatives have been discussed and questions answered. Patient agrees to proceed with procedure.
--- NOTE | 2023-12-22 07:24 | PM.HPGS ---
History of Present Illness History of Present Illness Consent: Risks, benefits, and alternatives have been discussed and questions answered. Patient agrees to proceed with procedure. Chief complaint: no endocervical cells Narrative: Christiana Cheema is a 53 year old female with no endocervical cells Pap or endocervical curetting. Patient is status post LEEP x2 with a history severe dysplasia. It was recommended to undergo a 1x1 LEEP with 2 passes in the endocervical canal for further evaluation. Risks of scarring are discussed and possible pathology was discussed risks of infection and bleeding are reviewed. The patient voices understanding and agrees to proceed. Review of Systems Review of Systems: not repeated day of surgery; patient states no changes in status PMFSH Past Medical History Medical History (Updated 12/22/23 @ 07:26 by Delaney Hoskins MD) Condyloma Cyst Fatty (change of) liver, not elsewhere classified CHLOÉ (generalized anxiety disorder) Hypertension Menopause Mitral valve prolapse Multinodular goiter Phobia, unspecified Surgical History Surgical History (Updated 12/22/23 @ 07:27 by Delaney Hoskins MD) H/O section X2 H/O LEEP 2000 and 2005 History of dilation and curettage History of removal of cyst from back Family History Family History Father Hypertension CHF (congestive heart failure) Mother Hypertension Other Asthma Cerebrovascular accident Diabetes mellitus Family history of arthritis Family history of hearing loss Family history of obesity Family history of thyroid disease Thyroid disease Social History Social History Smoking packs per day: 0.5 Smoking cigarettes per day: 10.0 Years smoked: 18 Smoking pack-years: 9.00 Smoking status: Former smoker Tobacco type: cigarettes Second hand tobacco smoke exposure: No Additional smoking assessment comments: QUIT IN 2011 Alcohol intake: current Drinks per week: 5 Substance use: current Substance use type: marijuana Other substance usage details: less than once a month Lack of Transportation: No Lack of Food: Never True Current Housing: I Have Housing Concerned About Future Housing: No Difficulty Paying Gas/Electric Bills: No Difficulty Paying for Meds: No Currently Unemployed: No Education: Master's Degree or Higher Difficulty w/ Childcare or Family Care: YES Living arrangements: with family Additional living arrangements comments: with and son Occupation/Education: occupation Gender identity (if verbalized by the patient): Female Sexual Orientation (if Verbalized by the Patient): Straight or Heterosexual Spiritual care concerns: No Meds Home Medications and Allergies Home Medications Medication Instructions Recorded Confirmed Type mvbhxbwp-hbj-ejrfq ac 400 1 tablet PO DAILY 01/07/23 12/22/23 History mcg-calcium carb 500 mg-vit K1 20 mcg tablet (Women's 50 Plus Multivitamin) lisinopril 30 mg tablet 30 mg PO DAILY #90 tabs 12/11/23 12/22/23 Rx Prilosec OTC 20 mg PO DAILY 12/19/23 12/22/23 History semaglutide (weight loss) 1.7 1.7 mg subcut WEEKLY 12/19/23 12/22/23 History mg/0.75 mL subcutaneous pen injector (Kolby) Allergies Allergy/AdvReac Type Severity Reaction Status Date / Time No Known Allergies Allergy Verified 12/22/23 07:21 Vital Signs Vital Signs - 24 hr 12/22/23 07:16 Temperature 97.8 F Pulse Rate 70 Respiratory Rate 18 Blood Pressure 135/85 Pulse Oximetry 96 Oxygen Delivery Room Air Exam Const: General: healthy appearing and alert Orientation/consciousness: patient oriented x3 Resp: Effort & Inspection: normal respiratory effort : External Female Exam: normal external appearance Speculum Exam - Vagina: normal appearance of the vagina and normal vaginal
[2023-12-22] MEDS: ACETAMINOPHEN 500 MG TABLET 1000 MG PO (07:28)
[2023-12-22] MEDS: LACTATED RINGERS 1,000 ML 30 ML IV CONT (07:31)
--- NOTE | 2023-12-22 08:21 | WPDANESEPPF ---
Anes - Initial Pre Proc Eval Procedure: Operation Date: 12/22/23 09:00 Proposed Procedures p Loop Electrical Excision Procedure - Delaney Hoskins MD Date/Time: 12/22/23 08:21 Surgeon: Delaney Hoskins MD Pre Op Diagnosis: no endocervical cells Patient Data Age: 53 Gender: F Height: 1.63 m Weight: 100 kg Last Vital Signs Temp 97.8 F 12/22/23 07:16 Pulse 70 12/22/23 07:16 Resp 18 12/22/23 07:16 BP 135/85 12/22/23 07:16 Pulse Ox 96 12/22/23 07:16 O2 Del Method Room Air 12/22/23 07:16 Allergies Allergy/AdvReac Type Severity Reaction Status Date / Time No Known Allergies Allergy Verified 12/22/23 07:21 Home Medications Medication Instructions Recorded Confirmed Type ygpdugqg-mnd-xntgh ac 400 1 tablet PO DAILY 01/07/23 12/22/23 History mcg-calcium carb 500 mg-vit K1 20 mcg tablet (Women's 50 Plus Multivitamin) lisinopril 30 mg tablet 30 mg PO DAILY #90 tabs 12/11/23 12/22/23 Rx Prilosec OTC 20 mg PO DAILY 12/19/23 12/22/23 History semaglutide (weight loss) 1.7 1.7 mg subcut WEEKLY 12/19/23 12/22/23 History mg/0.75 mL subcutaneous pen injector (Wegovy) Patient hx anesthesia problems: none Family hx anesthesia problems: none Results Review: All pre-operative results and documents have been reviewed as part of the pre-operative evaluation. [facility] Past Medical History Medical History Condyloma Cyst Fatty (change of) liver, not elsewhere classified CHLOÉ (generalized anxiety disorder) Hypertension Menopause Mitral valve prolapse Multinodular goiter Phobia, unspecified Surgical History Surgical History H/O section X2 H/O LEEP 2000 and 2005 History of dilation and curettage History of removal of cyst from back Family History Family History Father Hypertension CHF (congestive heart failure) Mother Hypertension Other Asthma Cerebrovascular accident Diabetes mellitus Family history of arthritis Family history of hearing loss Family history of obesity Family history of thyroid disease Thyroid disease Social History Social History Smoking packs per day: 0.5 Smoking cigarettes per day: 10.0 Years smoked: 18 Smoking pack-years: 9.00 Smoking status: Former smoker Tobacco type: cigarettes Second hand tobacco smoke exposure: No Additional smoking assessment comments: QUIT IN 2011 Alcohol intake: current Drinks per week: 5 Substance use: current Substance use type: marijuana Other substance usage details: less than once a month Lack of Transportation: No Lack of Food: Never True Current Housing: I Have Housing Concerned About Future Housing: No Difficulty Paying Gas/Electric Bills: No Difficulty Paying for Meds: No Currently Unemployed: No Education: Master's Degree or Higher Difficulty w/ Childcare or Family Care: YES Living arrangements: with family Additional living arrangements comments: with and son Occupation/Education: occupation Gender identity (if verbalized by the patient): Female Sexual Orientation (if Verbalized by the Patient): Straight or Heterosexual Spiritual care concerns: No Anes - Eval Final PreProcedure Day of Procedure 12/22/23 08:21 Patient weight: obese Heart: regular rate and rhythm Lungs: clear to auscultation Airway: Mallampati scale class II Neurological: alert and oriented Last oral intake: >/= 8 hours ASA classification: III Emergent: no Anesthetic plan: proceed Anesthesia type and monitoring: general GIVS and standard monitoring Results Review: All pre-operative results and documents have been reviewed as part of the pre-operative evaluation. HTN, exsmoker, quit appro
[2023-12-22] MEDS: LIDO 1%/EPINEPHRINE 1:100,000 50 ML VIAL 10 ML INFILTRATE (09:09)
[2023-12-22] MEDS: FERRIC SUBSULFATE 8 ML SOLUTION WITH APPLICATOR TOPICAL (09:09)
--- NOTE | 2023-12-22 09:39 | P.OP_ITS ---
Procedure Note - Detailed Date of Procedure 12/22/23 Pre-op Diagnosis no endocervical cells Severe cervical stenosis history severe cervical dysplasia Post-op Diagnosis Same Procedure Performed LEEP Surgeon Delaney Hoskins MD Anesthesia MAC and Local ( 1% lidocaine with epinephrine) Findings small cervix very scarred os Description of Procedure The patient was taken the operating room and placed under anesthesia in the dorsal position. She was prepped and draped in the usual sterile fashion. Coated speculum was placed in the vagina and the cervix was injected in each quadrant 1% lidocaine with epinephrine. A 1x1cm loop was used to perform a si ngle pass LEEP. The cervix was very short therefore 2nd pass was not taken. The Monsel's solution was applied to the cone bed and the sample is marked at 12 with suture. All instruments are removed. Good hemostasis is obtained. Sponge, needle, and instrument counts are correct per the OR staff. The patient was awakened from anesthesia taken to recovery in stable condition. Estimated Blood Loss 5 Drains No Packing No Pathology Yes ( LEEP marked at 12) Complications No immediate complications Condition Stable Disposition PACU
[2023-12-22 09:42] VITALS: BP 89/55; PULSE 71; RESP 16; O2SAT 96
[2023-12-22 10:00] VITALS: BP 112/69; PULSE 75; RESP 16
[2023-12-22 10:30] VITALS: BP 121/74; PULSE 71; RESP 16
== END 2023-12-22 10:40 ==
PROVIDERS: PCP Family Medicine; Visit Provider Obstetrics & Gynecology Gynecology
PROC: 0UBC7ZZ Excision of Cervix, Via Natural or Artificial Opening (ICD-10-PCS; CPT 57522; principal; 2023-12-22 09:00)
DX: Z09 Encounter for follow-up examination after completed treatment for conditions other than malignant neoplasm (principal); M48.02 Spinal stenosis, cervical region; I10 Essential (primary) hypertension; F41.9 Anxiety disorder, unspecified; I34.1 Nonrheumatic mitral (valve) prolapse; F40.9 Phobic anxiety disorder, unspecified; F12.90 Cannabis use, unspecified, uncomplicated; E66.9 Obesity, unspecified; Z68.37 Body mass index [BMI] 37.0-37.9, adult; Z79.85 Long-term (current) use of injectable non-insulin antidiabetic drugs; Z98.890 Other specified postprocedural states; Z87.891 Personal history of nicotine dependence; Z87.410 Personal history of cervical dysplasia; Z82.49 Family history of ischemic heart disease and other diseases of the circulatory system
CPT/HCPCS: 57522; 88307; A9270; J2250; J2405; J2704; J3010; J7120

== ENCOUNTER 2024-02-09 12:30 | Outpatient (CLI) | payer OTHER, SELFPAY ==
--- NOTE | ~2024-02-09 | MMUS_ITS ---
EXAMINATION: MM diagnostic jyoti BI w liv, US breast LT limited HISTORY: Left axillary mass seen on recent CT examination. Mammogram and ultrasound recommended. TECHNIQUE: Additional 3-D tomosynthesis images of the breasts were performed and synthetic 2-D images were generated. CAD analysis was submitted and interpreted. High resolution Limited left breast and axillary ultrasound was performed. COMPARISON: Comparison to multiple prior studies sequentially, with oldest reviewed study dated 05/2015. BREAST PARENCHYMAL COMPOSITION: Not dense: There are scattered areas of fibroglandular density. FINDINGS: MAMMOGRAPHIC FINDINGS: The breasts are stable. No new masses, calcifications or architectural distortion in either breast to suggest malignancy. ULTRASOUND: Limited left breast and axillary ultrasound: There are normal left axillary lymph nodes with normal f atty hilum and no significant cortical thickening. No suspicious masses are identified. IMPRESSION: 1. No mammographic or sonographic evidence for malignancy. Consider further evaluation with repeat CT of the chest with contrast to include the left axilla with possible biopsy as clinically warranted. 2. Routine yearly screening mammogram and regular clinical breast examination are recommended. BI-RADS Category 2: Benign finding(s). Reviewed, dictated and finalized at location [facility]. IMPRESSION: 1. No mammographic or sonographic evidence for malignancy. Consider further tanya luation with repeat CT of the chest with contrast to include the left axilla wi th possible biopsy as clinically warranted. 2. Routine yearly screening mammogram and regular clinical breast examination a re recommended. BI-RADS Category 2: Benign finding(s).
== END 2024-02-09 12:31 | disposition home or self-care (01) ==
LOC: ANHIMG 12:33
PROVIDERS: PCP Family Medicine; Visit Provider Physician Assistant
DX: N63.20 Unspecified lump in the left breast, unspecified quadrant (principal); R93.89 Abnormal findings on diagnostic imaging of other specified body structures
CPT/HCPCS: 76642; 77062; 77066; G0279

== ENCOUNTER 2024-03-02 07:53 | Outpatient (CLI) | payer OTHER, SELFPAY ==
--- NOTE | ~2024-03-02 | CT_ITS ---
Clinical Indication: Left axillary mass CT Scan of the Chest with Contrast: Technique: Contiguous sections were acquired throughout the chest after intravenous administration of 75 cc of Omnipaque 350. Dose reduction technique was used on this scan by utilizing automated exposu re control and iterative reconstruction technique. The dose-length product (DLP) was 344.22 mGy-cm. COMPARISON: 11/18/2023 Findings: There is no evidence of any significant mediastinal, hilar or axillary lymphadenopathy. There is no f illing defect in the pulmonary arterial tree to suggest pulmonary embolus. There is no evidence of ao rtic dissection or aneurysm. There is no evidence of pleural or pericardial effusion. Stable 5 mm right middle lobe pulmonary nodule present (axial image 72). Stable focal [place] in the left lower lobe with adjacent linear scarring or atelectasis. Images through the upper abdomen reveal no abnormalities. Impression: Stable 5 mm right lower lobe pulmonary nodule. Stable focal subcentimeter nodules in the left lower lobe with adjacent linear scarring or atelectasi s. No distinct left breast mass/left axillary mass seen. Reviewed, dictated and finalized at [facility]. [employer] Impression: Stable 5 mm right lower lobe pulmonary nodule. Stable focal subcentimeter nodules in the left lower lobe with adjacent linear scarring or atelectasis. No distinct left breast mass/left axillary mass seen.
[2024-03-02 08:21] LABS: Estimated Glomerular Filt Rate > 60
== END 2024-03-02 07:54 | disposition home or self-care (01) ==
PROVIDERS: PCP Family Medicine; Visit Provider Physician Assistant
DX: R91.8 Other nonspecific abnormal finding of lung field (principal); R22.32 Localized swelling, mass and lump, left upper limb
CPT/HCPCS: 71260; Q9967